=== PATIENT | female | born 1950 | race Caucasian/White ===

== ENCOUNTER 2018-04-30 11:50 | Outpatient (CLI) | payer MEDICARE, OTHER ==
--- NOTE | 2018-04-30 14:48 | MRI ---
MRI OF RIGHT KNEE PERFORMED WITHOUT CONTRAST ENHANCEMENT: Date: 04/30/18 HISTORY: Right knee pain. Patient fell while chasing her dog. FINDINGS: The anterior cruciate ligament shows some mild mucoid degeneration. Posterior cruciate ligament is in tact. Motion artifact degrades detail, but there appears to be a partial root tear of the posterior horn of the medial meniscus. There is mild meniscal protrusion associated with this. There are moderate arth ritic changes of the medial compartment of the knee and moderate articular cartilage loss. On the lateral side, there is a chronic macerated appearing tear involving the posterior horn and bod y region of the lateral meniscus. There is a severely truncated appearance to the posterior horn with degenerative mucoid changes involving the anterior horn and body region, in addition to a truncated appearance to the body of the meniscus. There are severe arthritic changes of the lateral compartment of the knee. The patellar articular cartilage shows some articular cartilage loss of the medial facet. Medial and lateral patellar retinaculum, as well as quadriceps and patellar tendons are normal. Moderate Hawkins's cyst is noted. The medial and lateral collateral ligament and iliotibial band region are unremarkable. IMPRESSION: 1. Severe degenerative arthritic changes of the medial and lateral compartments of the knee. These c hanges are particular pronounced in the lateral compartment with complex somewhat macerated degenerat forest-type tear involving the posterior horn and body region of the lateral meniscus. On the medial daniel e, there appears to be a partial root tear involving the posterior horn and there are moderate arthri tic changes of the medial compartment of the knee. 2. Hawkins's cyst. POS: GUILHERME
== END 2018-04-30 11:51 | disposition home or self-care (01) ==
LOC: BICMRI 11:50
PROVIDERS: ATTEND Physician Assistant
DX: M25.561 Pain in right knee (principal); M17.11 Unilateral primary osteoarthritis, right knee; M71.21 Synovial cyst of popliteal space [Baker], right knee

== ENCOUNTER 2020-01-11 14:35 | Outpatient (CLI) | payer MEDICARE ==
--- NOTE | 2020-01-11 15:27 | MMO ---
Bilateral MAMMO Bilat Screen [facility]. CLINICAL HISTORY: Patient is 69 years old and is seen for screening. The patient has no family history of breast cancer. The patient has no personal history of cancer. VIEWS: The views performed were: bilateral craniocaudal with tomosynthesis and bilateral mediolateral oblique with tomosynthesis. FILMS COMPARED: The present examination has been compared to prior imaging studies performed at [facility] on 04/30/2018, and at [facility] on 03/15/2015 and 03/27/2015. This study has been interpreted with the assistance of computer-aided detection. MAMMOGRAM FINDINGS: There are scattered fibroglandular densities. Benign calcifications are noted bilaterally. Left biopsy clip. There are no suspicious masses, suspicious calcifications, or new areas of architectural distortion. IMPRESSION: THERE IS NO MAMMOGRAPHIC EVIDENCE OF MALIGNANCY. A ROUTINE FOLLOW-UP MAMMOGRAM IN 1 YEAR IS RECOMMENDED. THE RESULTS OF THIS EXAM WERE SENT TO THE PATIENT. ACR BI-RADS Category 2 - Benign finding MAMMOGRAPHY NOTE: 1. A negative mammogram report should not delay a biopsy if a dominant of clinically suspicious mass is present. 2. Approximately 10% to 15% of breast cancers are not detected by mammography. 3. Adenosis and dense breasts may obscure an underlying neoplasm. Reported by: RAMIRO KLINE MD Electonically Signed: [id number]
== END 2020-01-11 14:36 | disposition home or self-care (01) ==
LOC: BICMAMMO 14:35
PROVIDERS: ATTEND Family Medicine
DX: Z12.31 Encounter for screening mammogram for malignant neoplasm of breast (principal)
CPT/HCPCS: 77063; 77067

== ENCOUNTER 2020-12-06 06:30 | Day surgery (SDC) | payer MEDICARE ==
[2020-12-04 12:56] VITALS: BMI 32.3
[2020-12-06] MEDS ORDERED: Bupivacaine PF 0.5% 30 ML VIAL ONE (06:36)
[2020-12-06] MEDS ORDERED: EPINEPHrine 1 MG/ML AMP ONE (06:36)
[2020-12-06] MEDS ORDERED: Thrombin 5000 UNITS/5 ML VIAL ONE (06:36)
[2020-12-06] MEDS ORDERED: Levofloxacin 500 mg/D5W 100 ml Premix Bag ONE (06:57)
[2020-12-06] MEDS ORDERED: Clindamycin/D5W 900 mg/50 ml Premix Bag ONE (06:57)
[2020-12-06] MEDS ORDERED: Fentanyl 100 MCG/2 ML VIAL ONE ×4 (07:01→09:51)
[2020-12-06] MEDS ORDERED: Midazolam HCl 2 mg/2 ml Vial ONE (07:26)
[2020-12-06] MEDS ORDERED: Rocuronium Bromide 10 MG/ML (10ML VIAL) ONE (07:36)
[2020-12-06] MEDS ORDERED: Lidocaine 1% PF 5 ML VIAL ONE (07:36)
[2020-12-06] MEDS ORDERED: PROPOFOL 200 MG/20 ML VIAL ONE (07:36)
[2020-12-06] MEDS ORDERED: Ondansetron PF 4 MG/2 ML Vial ONE (07:36)
[2020-12-06] MEDS ORDERED: Dexamethasone 20 MG/5 ML VIAL ONE (07:36)
[2020-12-06] MEDS ORDERED: SUGAMMADEX SODIUM 200 MG/2 ML VIAL ONE (08:44)
[2020-12-06] MEDS ORDERED: Morphine 4 MG/ML VIAL ONE (09:12)
[2020-12-06] MEDS ORDERED: Morphine 2 MG/ML VIAL ONE ×2 (09:24→09:51)
[2020-12-06] MEDS ORDERED: HYDROcodone/Acetaminophen 5/325 mg Tablet ONE (12:11)
== END 2020-12-06 12:39 | disposition home or self-care (01) ==
LOC: SDC 06:30
PROVIDERS: ATTEND Neurological Surgery
PROC: 01NB0ZZ Release Lumbar Nerve, Open Approach (ICD-10-PCS; principal; 2020-12-06)
DX: M51.16 Intervertebral disc disorders with radiculopathy, lumbar region (principal); G96.11 Dural tear; G89.29 Other chronic pain; I10 Essential (primary) hypertension; J45.909 Unspecified asthma, uncomplicated; Z79.1 Long term (current) use of non-steroidal anti-inflammatories (NSAID); Z79.899 Other long term (current) drug therapy; Z88.0 Allergy status to penicillin
CPT/HCPCS: 63042; 76000; J2270; J0171; J1100; J1956; J2250; J2405; J2704; J3010; J3490; S0020

== ENCOUNTER 2024-04-15 08:05 | Outpatient (CLI) | payer MEDICARE | END 2024-04-15 08:06 | disposition home or self-care (01) | LOC: SCSMRI 08:05 | PROVIDERS: ATTEND Family Medicine | DX: N28.1 Cyst of kidney, acquired (principal); N28.89 Other specified disorders of kidney and ureter; K80.80 Other cholelithiasis without obstruction | CPT/HCPCS: 36415; 74183; 82565 ==

== ENCOUNTER 2024-11-02 11:13 | Outpatient (CLI) | payer MEDICARE ==
[2024-11-02 16:37] LABS: Estimated GFR - POC 52.0
== END 2024-11-02 11:14 | disposition home or self-care (01) ==
LOC: MRI 11:13
PROVIDERS: ATTEND Family Medicine
DX: K76.9 Liver disease, unspecified (principal); R93.2 Abnormal findings on diagnostic imaging of liver and biliary tract
CPT/HCPCS: 36415; 74183; 82565

== ENCOUNTER 2024-11-22 13:54 | Outpatient (CLI) | payer MEDICARE | END 2024-11-22 13:55 | disposition home or self-care (01) | LOC: BICMAMMO 13:54 | PROVIDERS: ATTEND Family Medicine | DX: Z12.31 Encounter for screening mammogram for malignant neoplasm of breast (principal) | CPT/HCPCS: 77063; 77067 ==